=== PATIENT | male | born 1950 | race Caucasian/White ===

== ENCOUNTER 2023-10-05 08:47 | Outpatient (OUT) | payer MEDICARE, OTHER, SELFPAY ==
[2023-10-05 09:21] LABS: Basophils Absolute Auto 0.1 10^3/uL (0.0-0.1); Basophils Percent Auto 2.1 % (0.2-2.0); Eosinophils Absolute Auto 0.3 10^3/uL (0.0-0.7); Eosinophils Percent Auto 5.4 % (0.9-7.0); Hematocrit 47.2 % (42.0-54.0); Hemoglobin 15.8 g/dL (14.0-18.0); Immature Granulocytes Abs Auto 0.03 10^3/uL (0.00-0.03); Immature Granulocytes Pct Auto 0.5 % (0.0-0.5); Lymphocytes Absolute Auto 1.6 10^3/uL (1.2-3.8); Lymphocytes Percent Auto 26.6 % (20.5-60.0); Mean Corpuscular HGB Conc 33.5 g/dL (29.9-35.2); Mean Corpuscular Hemoglobin 29.4 pg (25.9-34.0); Mean Corpuscular Volume 87.7 fL (80.0-94.0); Mean Platelet Volume 10.6 fL (9.5-13.5); Monocytes Absolute Auto 0.8 10^3/uL (0.3-0.8); Monocytes Percent Auto 12.7 % (1.7-12.0); Neutrophils Absolute Auto 3.2 10^3/uL (1.4-6.5); Neutrophils Percent Auto 52.7 % (43.0-75.0); Platelet Count 217 10^3/uL (150-450); Red Blood Count 5.38 10^6/uL (4.70-6.10); Red Cell Distribution Width 13.1 % (11.0-15.0); White Blood Count 6.1 10^3/uL (4.0-11.0)
[2023-10-05 11:39] LABS: Estimated Average Glucose 123 mg/dL; Glycohemoglobin A1C 5.9 % (4.5-6.2)
[2023-10-05 12:47] LABS: Alanine Aminotransferase 36 U/L (16-63); Albumin Globulin Ratio 1.1; Albumin Level 4.2 g/dL (3.4-5.0); Alkaline Phosphatase 99 U/L (46-116); Anion Gap 13.3; Aspartate Amino Transferase 23 U/L (15-37); BUN Creatinine Ratio 19.4; Bilirubin Total 0.6 mg/dL (0.2-1.0); Calcium 9.9 mg/dL (8.5-10.1); Chloride 101 mmol/L (98-107); Chol HDL Ratio 2.8; Cholesterol 159 mg/dL (<=200); Estimated GFR (African America >60 (>=60); Estimated GFR (Non-African Ame 52 (>=60); Globulin 3.8 g/dL; Glucose 103 mg/dL (74-106); HDL Cholesterol 56 mg/dL (40-60); LDL Cholesterol Calculated 73.2 mg/dL; Potassium 3.3 mmol/L (3.5-5.1); Sodium 139 mmol/L (136-145); Triglycerides 149 mg/dL (<=150); VLDL CHOLESTEROL 29.8 mg/dL
== END 2023-10-05 08:48 | disposition home or self-care (01) ==
LOC: LAB 08:55
PROVIDERS: PCP Family Medicine; Visit Provider Family Medicine
DX: E78.5 Hyperlipidemia, unspecified (principal); R73.9 Hyperglycemia, unspecified; Z79.899 Other long term (current) drug therapy; E55.9 Vitamin D deficiency, unspecified
CPT/HCPCS: 36415; 80053; 80061; 82306; 83036; 85025

== ENCOUNTER 2023-10-12 08:55 | Outpatient (OUT) | payer MEDICARE, OTHER, SELFPAY ==
[2023-10-12 09:43] LABS: Anion Gap 12.1; BUN Creatinine Ratio 14.3; Calcium 9.5 mg/dL (8.5-10.1); Chloride 105 mmol/L (98-107); Estimated GFR (African America >60 (>=60); Estimated GFR (Non-African Ame 56 (>=60); Glucose 103 mg/dL (74-106); Potassium 4.1 mmol/L (3.5-5.1); Sodium 141 mmol/L (136-145)
== END 2023-10-12 08:56 | disposition home or self-care (01) ==
LOC: LAB 08:58
PROVIDERS: PCP Family Medicine; Visit Provider Family Medicine
DX: Z79.899 Other long term (current) drug therapy (principal)
CPT/HCPCS: 36415; 80048

== ENCOUNTER 2024-07-27 12:30 | Outpatient (OUT) | payer OTHER, SELFPAY ==
--- NOTE | 2024-07-27 | ECG_ITS ---
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
--- NOTE | 2024-07-27 13:00 | CA_ITS ---
Patient Name: CHELSEA DICKINSON MR#: [id number] : 1950 Exam Date: 07/27/2024 Ordering Doctor: DR. LIANNE BRADLEY ECHOCARDIOGRAM REPORT PROCEDURE: CA ECHO DOPPLER COMPLETE INDICATIONS: Atrial fibrillation, hypertension, smoker COMPARISON: None. DESCRIPTION: COMPLETE ECHOCARDIOGRAM Real-time transthoracic echocardiography with 2D, M-mode, spectral and color flow Doppler performed. QUALITY: Technical quality was good. LEFT VENTRICLE: Normal chamber size. Mild left ventricular hypertrophy. LV EF: Global left ventricular systolic function is normal; visually estimated ejection fraction is 60 to 65%. No significant wall motion abnormalities. DIASTOLIC: Normal diastolic function. ATRIAL SEPTUM: Visually appears intact. LEFT ATRIUM: Normal chamber size. RIGHT ATRIUM: Normal chamber size. RIGHT VENTRICLE: Normal chamber size. Normal right ventricular systolic function. TRICUSPID VALVE: Normal mobility and thickness. No stenosis with trivial regurgitation. No evidence of pulmonary hypertension. RVSP 26 mmHg MITRAL VALVE: Normal mobility and thickness. No evidence of mitral valve stenosis. There is no mitral annular calcification. Trivial mitral regurgitation. AORTIC VALVE: Normal trileaflet appearance. Mildly calcified aortic valve. Normal leaflet mobility. No evidence of aortic valve stenosis. Trivial aortic regurgitation. AORTIC ROOT: Normal diameter and appearance. Ascending aorta is normal in size. PULMONIC VALVE: Normal thickness and mobility. No stenosis. Trivial regurgitation. PERICARDIUM: No evidence of pericardial effusion. IVC: Collapses with inspirations. IVC is normal in size. CONCLUSION: 1. Global left ventricular systolic function is normal; visually estimated ejection fraction is 60 to 65% 2. Normal right ventricular size and systolic function 3. Mild left ventricular hypertrophy 4. Normal diastolic function 5. No significant valvular abnormalities Adult Echocardiography Procedure Report Left Ventricle LVEDD (3.7 - 5.6 cm): 4.71 cm LVESD (2.2 - 4.0 cm): 3.27 cm LVIVS thickness (0.6 - 1.2 cm): 1.24 cm LVPW thickness (0.5 - 1.0 cm): 1.04 cm e': 0.12 m/s E - e': 4.23 LVOT Max Gradient: 3.98 mm[Hg] LVOT Area (cm2): 1.00 m/s Peak Velocity (LVOT): 1.00 m/s Mean Velocity (LVOT): 0.64 m/s LVOT Diameter 2.56 cm Left Atrium LA Volume Index (2D A2C): 31.03 ml/m2 Left Atrium Systolic Dimension: 3.13 cm Mitral Valve MV E to A Ratio: 0.63 Mitral Valve A-Wave Peak Velocity: 0.80 m/s Mitral Valve E-Wave Peak Velocity: 0.50 m/s Right Ventricle Aorta AO Root Diam: 3.69 cm Ascending Ao Diam: 3.12 cm Aortic Valve AoV Area (Peak Dago): 5.01 cm2, 5.01 cm2 AoV Area (VTI): 4.66 cm2, 4.66 cm2 Peak Velocity(Antegrade Flow): 1.02 m/s Peak Gradient(Antegrade Flow): 4.19 mm[Hg] Mean Velocity(Antegrade Flow): 0.62 m/s Mean Gradient(Antegrade Flow): 1.89 mm[Hg] Velocity Time Integral: 22.58 cm Tricuspid Valve Peak Velocity (Regurgitant Flow): 2.41 m/s, 2.20 m/s Pulmonic Valve Mean Gradient: 1.86 mm[Hg] Mean Velocity: 0.65 m/s Peak Velocity: 0.93 m/s, 1.02 m/s Peak Gradient: 3.47 mm[Hg], 4.20 mm[Hg] Right Atrium Right Atrium Systolic Pressure: 42.68 ml, 42.68 ml Dictated by: Bibi Villanueva M.D. on 07/27/2024 at 16:21 Approved by: Bibi Villanueva M.D. on 07/27/2024 at 16:25
== END 2024-07-27 12:31 | disposition home or self-care (01) ==
PROVIDERS: PCP Family Medicine; Visit Provider Chiropractor
DX: I48.91 Unspecified atrial fibrillation (principal); I10 Essential (primary) hypertension
CPT/HCPCS: 93005; 93306